=== PATIENT | female | born 1940 | race Caucasian/White ===

== ENCOUNTER → 2018-09-30 | Day surgery (SDC) | payer MEDICARE, OTHER ==
[2018-09-25 15:30] LABS: BASOPHILS % 0.4 % (0.0-1.0); EOSINOPHILS # (AUTO) 0.2 (0.0-0.4); EOSINOPHILS % 3.8 % (0.0-6.0); HEMATOCRIT 33.2 % (34.2-44.1); HEMOGLOBIN 11.2 g/dL (12.0-16.0); LYMPHOCYTES # (AUTO) 1.2 (1.0-3.2); LYMPHOCYTES % 23.5 % (18.0-39.1); MEAN CORPUSCULAR HGB CONC 33.7 g/dL (31-35); MONOCYTES # (AUTO) 0.4 (0.2-0.8); MONOCYTES % 8.1 % (4.4-11.3); NEUTROPHILS # (AUTO) 3.2 (2.1-6.9); PLATELET COUNT 135 x10e3/uL (140-360); RED BLOOD COUNT 3.61 x10e6/uL (3.6-5.1); RED CELL DISTRIBUTION WIDTH 12.1 % (11.7-14.4)
[2018-09-25 15:43] LABS: INR 0.95; PROTHROMBIN TIME 13.6 seconds (11.9-14.5)
[2018-09-25 15:44] LABS: PARTIAL THROMBOPLASTIN TIME 33.5 seconds (23.8-35.5)
[2018-09-25 15:50] LABS: ALBUMIN 3.6 g/dL (3.5-5.0); CALCIUM 9.9 mg/dL (8.4-10.2); CREATININE, SERUM 1.17 mg/dL (0.57-1.11)
[~2018-09-30] MED LIST: APRISO0.375 GM PO; CYCLOSPORINE25 MG PO; LEVOTHYROXINE112 MCG PO; ONCE DAILY1 EACH PO; PROPOFOL IV EMULSION 10 MG/ML 20 ML VIAL ONE; VITAMIN D400 UNIT PO
--- OUTSIDE RECORDS SUMMARY | 2018-09-30 05:48 | XMS REPORT | Clinical Summary ---
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 Active multivitamin per Take 1 tablet 0 tabletIndications: by mouth Cirrhosis (HCC), daily. Autoimmune hepatitis Vitamin for (HCC) women Active mesalamine (APRISO) 0.375 Take 375 mg 0 gram 24 hr capsule by mouth daily. Active cycloSPORINE modified Take 3 150 capsule 5 (NEORAL) 25 MG capsule tablets ( 75 8 mg total) In the morning and take 2 tablets ( 50 mg total) at night (12 hour separation).. 09/25/2018 Discontinued pantoprazole (PROTONIX) Take 40 mg by 0 40 MG tablet mouth daily. 01/30/2018 Discontinued cycloSPORINE modified Take 3 180 capsule 5 (NEORAL) 25 MG capsule capsules (75 6 mg total) by mouth 2 (two) times daily. 09/25/2018 Discontinued RISEDRONATE SODIUM Take by mouth 0 (RISEDRONATE ORAL) once a week. 07/04/2018 Discontinued azaTHIOprine (IMURAN) 50 Take 1 tablet 30 tablet 5 mg tablet (50 mg total) 8 by mouth daily. 09/25/2018 Discontinued mycophenolate (CELLCEPT) Take 1 60 capsule 6 08/17/201 250 mg capsule capsule (250 8 mg total) by mouth 2 (two) times daily. 08/13/2018 Discontinued sirolimus (RAPAMUNE) 1 MG Take 1 tablet 30 tablet 3 tablet (1 mg total) 8 by mouth daily. 09/25/2018 Discontinued sirolimus (RAPAMUNE) 0.5 Take 1 tablet 60 tablet 2 mg Tab tablet (0.5 mg 8 total) by mouth 2 (two) times daily. 08/20/2018 ondansetron (ZOFRAN-ODT) Take 1 tablet 60 tablet 2 4 MG disintegrating (4 mg total) 8 tablet by mouth every 8 (eight) hours as needed for Nausea for up to 7 days. Status Hospital, Clinic, or Ordered Dose Route Frequency Start End Date Other Facility Date Administered Medication Active gadobutrol Soln 6 mmol 6 mmol IV Cyclic- See Admin 04/11/20 Instructions 16 Active gadobutrol Soln 7 mmol 7 mmol IArt IMG once as needed 09/14/20 16 Active Problems Problem Noted Date Mouth sores 04/05/2016 Anemia 04/05/2016 Nausea 10/27/2015 Weight loss 10/27/2015 Cirrhosis 03/24/2014 Last Assessment & Plan: She has biopsy proven cirrhosis, supported by ultrasound showing a nodular liver. Her condition is well compensated with near-normal synthetic function and mild portal hypertension. The etiology is most likely autoimmune hepatitis. Portal hypertension 03/24/2014 Last Assessment & Plan: Although her spleen was reported as normal size on ultrasound, her platelet count is mildly decreased. Risk of esophageal varices 03/24/2014 Last Assessment & Plan: She has no clinical complications of portal hypertension, but she should be screened for esophageal varices. I will ask Dr. Guzman to do the procedure. Autoimmune hepatitis 03/24/2014 Last Assessment & Plan: She meets criteria for AIH including elevated BRANDYN, elevated liver tests, compatible biopsy, and a prior response to immunosuppression. We will start treatment with prednisone 30 mg and azathioprine 50 mg daily. She will taper to 20 mg prednisone over two weeks, and remain on 20 mg daily until her next visit. We will see her again in about 4 weeks with labs before her next visit. Immunity status testing 03/24/2014 Last Assessment & Plan: She demonstrates no prior exposure to hepatitis A or B, and has received a single shot vaccine based on Dr. Adams's advice. I assume this is Twinrix, but have asked her to bring her vaccination record to her next visit. Complete vaccination against HAV and HBV are recommended, but should be delayed until she is tapered off prednisone. Screening for cancer 03/24/2014 Last Assessment & Plan: Cirrhosis, regardless of etiology, is a risk factor for development of hepatocellular carcinoma with an annual incidence of 1.5-7%. We recommend surveillance for HCC with abdominal imaging and alphafetoprotein every 6 months. Her ultrasound in December 2013 showed no mass, and AFP was 1.6. We will repeat testing in Jun 2014. Encounters Care Team Description Date Type Specialty Li Lake RN 09/26/2018 Abstract Hepatology Juanjose Dover MD Other cirrhosis of liver (HCC); Autoimmune hepatitis (HCC) 09/25/2018 Orders Only Transplant Hepatology Juanjose Dover MD Hall, Sophia Marie, NP 09/25/2018 Office Visit Hepatology Gustavo Muñoz APPT CONFIRMATION 09/24/2018 Telephone Hepatology Dalton Cole NP Other cirrhosis of liver (HCC) (Primary Dx); Autoimmune hepatitis (HCC) 09/19/2018 Orders Only Hepatology Kathie Hull RN Autoimmune hepatitis (HCC) (Primary Dx) 09/19/2018 Orders Only Hepatology Gladys Mccall RN other 09/15/2018 Telephone HepatEmma Garay NP Follow-up 09/08/2018 Telephone Emma Reddy NP Follow-up 09/08/2018 Telephone HepatEmma Garay NP Autoimmune hepatitis (HCC) 08/28/2018 Orders Only Hepatology Emma Morillo NP Autoimmune hepatitis (HCC) 08/26/2018 Orders Only Hepatology Gustavo Muñoz 08/25/2018 Abstract Hepatology Emma Morillo NP Other cirrhosis of liver (HCC) (Primary Dx); Autoimmune hepatitis (HCC) 08/13/2018 Orders Only Hepatology Emma Morillo NP 08/13/2018 Orders Only Hepatology Emma Morillo NP Autoimmune hepatitis (HCC) (Primary Dx) 07/22/2018 Orders Only Hepatology Gustavo Muñoz abnormal labs 07/22/2018 Telephone Hepatology Dalton Cole NP 07/04/2018 Documentation Hepatology Dalton Cole NP Autoimmune hepatitis (HCC) 07/04/2018 Orders Only Hepatology Gladys Mccall RN other 07/04/2018 Telephone Hepatology Emma Morillo NP Autoimmune hepatitis (HCC) 07/02/2018 Orders Only Hepatology Emma Morillo NP Autoimmune hepatitis (HCC) (Primary Dx) 05/30/2018 Orders Only Hepatology Juanjose Dover MD Screening for cancer 04/16/2018 Hospital Radiology Encounter Juanjose Dover MD 04/15/2018 Outside Orders Radiology Juanjose Dover MD Other cirrhosis of liver (HCC) (Primary Dx); Autoimmune hepatitis (HCC); Screening for cancer; Portal hypertension (HCC); Secondary esophageal varices without bleeding (HCC); Osteoporosis, unspecified osteoporosis type, unspecified pathological fracture presence; Immunity status testing 04/03/2018 Office Visit Hepatology Abena Reyes PA-C Follow-up 03/17/2018 Telephone Hepatology David Lanier NP Dr. Hollinger reccomendation 02/05/2018 Telephone Hepatology Li Lake RN 01/30/2018 Orders Only Hepatology Angela Marte RN 01/29/2018 Documentation Hepatology Abena Reyes PA-C Autoimmune hepatitis (HCC) (Primary Dx) 01/13/2018 Orders Only Hepatology Rosalva Burks MD Other cirrhosis of liver (HCC); Autoimmune hepatitis (HCC); Screening for cancer 10/24/2017 Hospital Radiology Encounter David Lanier NP GI reports 10/04/2017 Telephone HepatLi Luo RN 10/04/2017 Abstract HepatLi Luo RN 10/04/2017 Abstract Hepatology Abena Reyes PA-C Hollinger, F. Blaine, MD Other cirrhosis of liver (HCC) (Primary Dx); Autoimmune hepatitis (HCC); Screening for cancer; Secondary esophageal varices without bleeding (HCC); Portal hypertension (HCC); Other iron deficiency anemia 10/03/2017 Office Visit Hepatology Juanjose Dover MD 09/30/2017 Orders Only Hepatology after 09/29/2017 Family History Medical History Relation Name Comments Heart failure Father Heart failure Mother Relation Name Status Comments Brother Alive Father Mother Sister Alive Sister Alive Social History Date Tobacco Use Types Packs/Day Years Used Former Smoker Smokeless Tobacco: Never Used Comments: smoked 31 years ago Alcohol Use Drinks/Week oz/Week Comments No 1-2 Cans of 0.6 - 1.2 Quit 2010 beer Sex Assigned at Date Recorded Not on file Industry Job Start Date Occupation Not on file Not on file Not on file Travel End Travel History Travel Start No recent travel history available. Last Filed Vital Signs Time Taken Vital Sign Reading 09/25/2018 10:32 AM [facility] Blood Pressure 146/80 09/25/2018 10:32 AM [facility] Pulse 62 09/25/2018 10:32 AM [facility] Temperature 36.7 C (98.1 F) 09/25/2018 10:32 AM [facility] Respiratory Rate 16 09/25/2018 10:32 AM [facility] ROOFER Oxygen Saturation 98% - Inhaled Oxygen - Concentration 09/25/2018 10:32 AM TIN ROOFER Weight 64.4 kg (142 lb) 09/25/2018 10:32 AM [facility] ROOFER Height 159 cm (5' 2.6") 09/25/2018 10:32 AM [facility] ROOFER Body Mass Index 25.48 Plan of Treatment Care Team Description Date Type Specialty Juanjose Dover MD [address] [address] [phone] Resource, [facility] 03/25/2019 Office Visit Hepatology Health Maintenance Due Date Last Done Comments INFLUENZA VACCINE 08/18/2018 Procedures Comments Procedure Name Priority Date/Time Associated Diagnosis CBC W/PLT COUNT & AUTO Routine 09/25/2018 Other cirrhosis of liver DIFFERENTIAL 10:26 AM [facility] (HCC) CYCLOSPORINE LEVEL Routine 09/25/2018 Autoimmune hepatitis 10:26 AM [facility] (HCC) ALPHA FETOPROTEIN (AFP), Routine 09/25/2018 Other cirrhosis of liver TUMOR MARKER 10:26 AM [facility] (HCC) CBC W/PLT COUNT & AUTO Routine 09/25/2018 Other cirrhosis of liver DIFFERENTIAL 10:26 AM [facility] (HCC) HEPATIC FUNCTION PANEL Routine 09/25/2018 Other cirrhosis of liver 10:26 AM [facility]FER (HCC) BASIC METABOLIC PANEL (7) Routine 09/25/2018 Other cirrhosis of liver 10:26 AM T[facility] ROOFER (HCC) CBC W/PLT COUNT & AUTO Routine 09/16/2018 Autoimmune hepatitis DIFFERENTIAL 9:29 AM CDT (HCC) HEPATIC FUNCTION PANEL Routine 09/16/2018 Autoimmune hepatitis 9:29 AM CDT (HCC) BASIC METABOLIC PANEL (7) Routine 09/16/2018 Autoimmune hepatitis 9:29 AM CDT (HCC) CYCLOSPORINE LEVEL Routine 09/16/2018 Autoimmune hepatitis 9:29 AM CDT (HCC) SIROLIMUS LEVEL Routine 09/16/2018 Autoimmune hepatitis 9:29 AM CDT (HCC) CBC W/PLT COUNT & AUTO Routine 08/28/2018 Autoimmune hepatitis DIFFERENTIAL 8:42 AM CDT (HCC) HEPATIC FUNCTION PANEL Routine 08/28/2018 Autoimmune hepatitis 8:42 AM CDT (HCC) BASIC METABOLIC PANEL (7) Routine 08/28/2018 Autoimmune hepatitis 8:42 AM CDT (HCC) CYCLOSPORINE LEVEL Routine 08/28/2018 Autoimmune hepatitis 8:42 AM CDT (HCC) SIROLIMUS LEVEL Routine 08/28/2018 Autoimmune hepatitis 8:42 AM CDT (HCC) IMMUNOGLOBULIN G (IGG) Routine 08/04/2018 Autoimmune hepatitis 8:39 AM CDT (HCC) CYCLOSPORINE LEVEL Routine 08/04/2018 Autoimmune hepatitis 8:39 AM CDT (HCC) PROTHROMBIN TIME/INR Routine 08/04/2018 Autoimmune hepatitis 8:39 AM CDT (HCC) CBC W/PLT COUNT & AUTO Routine 08/04/2018 Autoimmune hepatitis DIFFERENTIAL 8:39 AM CDT (HCC) HEPATIC FUNCTION PANEL Routine 08/04/2018 Autoimmune hepatitis 8:39 AM CDT (HCC) BASIC METABOLIC PANEL (7) Routine 08/04/2018 Autoimmune hepatitis 8:39 AM CDT (HCC) CYCLOSPORINE LEVEL Routine 07/18/2018 Autoimmune hepatitis 8:55 AM CDT (HCC) HEPATIC FUNCTION PANEL Routine 07/18/2018 Autoimmune hepatitis 8:55 AM CDT (HCC) BASIC METABOLIC PANEL (7) Routine 07/18/2018 Autoimmune hepatitis 8:55 AM CDT (HCC) CYCLOSPORINE LEVEL Routine 06/26/2018 Autoimmune hepatitis 9:36 AM CDT (HCC) HEPATIC FUNCTION PANEL Routine 06/26/2018 Autoimmune hepatitis 9:36 AM CDT (HCC) BASIC METABOLIC PANEL (7) Routine 06/26/2018 Autoimmune hepatitis 9:36 AM CDT (HCC) HEPATIC FUNCTION PANEL Routine 05/08/2018 Autoimmune hepatitis 8:47 AM CDT (HCC) BASIC METABOLIC PANEL (7) Routine 05/08/2018 Autoimmune hepatitis 8:47 AM CDT (HCC) CYCLOSPORINE LEVEL Routine 05/08/2018 Autoimmune hepatitis 8:47 AM CDT (HCC) US ABDOMINAL WITH DOPPLER Routine 04/16/2018 Screening for cancer 10:08 AM CDT CYCLOSPORINE LEVEL Routine 03/31/2018 Autoimmune hepatitis 9:27 AM CDT (HCC) PROTHROMBIN TIME/INR Routine 03/31/2018 Autoimmune hepatitis 9:27 AM CDT (HCC) CBC W/PLT COUNT & AUTO Routine 03/31/2018 Autoimmune hepatitis DIFFERENTIAL 9:27 AM CDT (HCC) HEPATIC FUNCTION PANEL Routine 03/31/2018 Autoimmune hepatitis 9:27 AM CDT (HCC) BASIC METABOLIC PANEL (7) Routine 03/31/2018 Autoimmune hepatitis 9:27 AM CDT (HCC) CYCLOSPORINE LEVEL Routine 01/07/2018 Autoimmune hepatitis 9:04 AM [facility]FER (HCC) Other cirrhosis of liver (HCC) Screening for cancer ALPHA FETOPROTEIN (AFP), Routine 01/07/2018 Other cirrhosis of liver TUMOR MARKER 9:00 AM [facility]FER (HCC) Autoimmune hepatitis (HCC) Screening for cancer PROTHROMBIN TIME/INR Routine 01/07/2018 Other cirrhosis of liver 9:00 AM [facility]OOFER (HCC) Autoimmune hepatitis (HCC) Screening for cancer CBC W/PLT COUNT & AUTO Routine 01/07/2018 Other cirrhosis of liver DIFFERENTIAL 9:00 AM T[facility]OOFER (HCC) Autoimmune hepatitis (HCC) Screening for cancer HEPATIC FUNCTION PANEL Routine 01/07/2018 Other cirrhosis of liver 9:00 AM TIN [facility]OOFER (HCC) Autoimmune hepatitis (HCC) Screening for cancer BASIC METABOLIC PANEL (7) Routine 01/07/2018 Other cirrhosis of liver 9:00 AM [facility]FER (HCC) Autoimmune hepatitis (HCC) Screening for cancer US ABDOMEN COMPLETE Routine 10/24/2017 Other cirrhosis of liver 2:08 PM [facility]IN [facility]OOFER (HCC) Autoimmune hepatitis (HCC) Screening for cancer CYCLOSPORINE LEVEL Routine 09/30/2017 9:11 AM [facility] ALPHA FETOPROTEIN (AFP), Routine 09/30/2017 TUMOR MARKER 9:11 AM [facility] IMMUNOGLOBULIN G (IGG) Routine 09/30/2017 9:11 AM [facility]IN [facility] CBC W/PLT COUNT & AUTO Routine 09/30/2017 DIFFERENTIAL 9:11 AM [facility]FER PROTHROMBIN TIME/INR Routine 09/30/2017 9:11 AM [facility] HEPATIC FUNCTION PANEL Routine 09/30/2017 9:11 AM TIN [facility]OOFER BASIC METABOLIC PANEL (7) Routine 09/30/2017 9:11 AM [facility]IN [facility]FER after 09/29/2017 Results * CBC with platelet count + automated diff (09/25/2018 10:26 AM TIN ROOFER) WBC 4.5 3.5 - 10.5 K/L [facility] RBC 3.78 (L) 3.93 - 5.22 M/L [facility] Hemoglobin 11.6 11.2 - 15.7 GM/DL [facility] Hematocrit 35.6 34.1 - 44.9 % [facility] MCV 94.2 79.4 - 94.8 fL [facility] MCH 30.7 25.6 - 32.2 pg [facility] MCHC 32.6 32.2 - 35.5 GM/DL [facility] RDW 12.2 11.7 - 14.4 % [facility] Platelets 142 (L) 150 - 450 K/CU MM [facility] MPV 10.9 9.4 - 12.3 fL [facility] nRBC 0 0 - 0 /100 WBC [facility] % Neutros 69 % [facility] % Lymphs 20 % [facility] % Monos 6 % [facility] % Eos 4 % [facility] % Baso 0 % [facility] # Neutros 3.12 1.56 - 6.13 K/L [facility] # Lymphs 0.89 (L) 1.18 - 3.74 K/L [facility] # Monos 0.29 0.24 - 0.36 K/L [facility] # Eos 0.18 0.04 - 0.36 K/L [facility] # Baso 0.02 0.01 - 0.08 K/L [facility] Immature 0 0 - 1 % [facility] Granulocytes-[facility] Specimen Blood Performing Organization Address City/State/[place] [address] [phone] [place] [address] * Cyclosporine level (09/25/2018 10:26 AM TIN ROOFER) Only the most recent of 10 results within the time period is included. Cyclosporine Lvl 61 <400 ng/mL [facility] Specimen Blood Performing Organization Address City/[facility]/[place] Phone Number [address] * Alpha fetoprotein (AFP), tumor marker (09/25/2018 10:26 AM TIN ROOFER) Only the most recent of 3 results within the time period is included. Alpha-Fetoprotein <2.0 <10.0 ng/mL [facility] Specimen Blood Performing Organization Address [facility]/[place] Phone Number [place] [phone] * Hepatic function panel (09/25/2018 10:26 AM TIN ROOFER) Only the most recent of 10 results within the time period is included. Protein, Total 7.7 6.0 - 8.3 gm/dL [facility] Albumin 4.0 3.5 - 5.0 g/dL [facility] Total Bilirubin 0.8 0.2 - 1.2 mg/dL [facility] Bilirubin, Direct 0.4 0.1 - 0.5 mg/dL [facility] Alkaline Phosphatase 77 40 - 150 U/L [facility] AST 30 5 - 34 U/L [facility] ALT 20 6 - 55 U/L [facility] Specimen Blood Performing Organization Address City/[facility]/Zipcode Phone Number [facility] [address] [place] [address] [facility] * Basic Metabolic Panel (09/25/2018 10:26 AM TIN ROOFER) Only the most recent of 10 results within the time period is included. Sodium 140 136 - 145 meq/L [facility] Potassium 4.2 3.5 - 5.1 meq/L [facility] Chloride 105 98 - 107 meq/L [facility] CO2 27 22 - 29 meq/L [facility] BUN 23 (H) 7 - 21 mg/dL [facility] Creatinine 1.41 (H) 0.57 - 1.25 mg/dL [facility] Glucose 79 70 - 105 mg/dL [facility] Calcium 9.8 8.4 - 10.2 mg/dL [facility] EGFR 36Comment: ESTIMATED GFR IS mL/min/1.[address] [facility] NOT ACCURATE CREATININE [facility] CLEARANCE IN PREDICTING GLOMERULAR FILTRATION RATE. ESTIMATED GFR IS NOT APPLICABLE FOR DIALYSIS PATIENTS. Specimen Blood Performing Organization Address City/State/Zipcode Phone Number [facility] [address] [place], [place] [phone] [facility] * Sirolimus level (09/16/2018 9:29 AM CDT) Only the most recent of 2 results within the time period is included. Rapamycin Trough <2.5 (L) 3.0 - 18.0 mcg/L [facility] Comment: This test was developed and its analytical performance characteristics have been determined by [facility]. It has not been cleared or approved by the US Food and Drug Administration. This assay has been validated pursuant to the CLIA regulations and is used for clinical purposes. Specimen Blood Narrative Performed At FASTING:YES [facility] FASTING: YES Resulting Agency Comment Performing Organization Information: Site ID: [id number] Name: [facility] Address: [address] [place] [address] Director: Anish Patel M.D., Ph.D Performing Organization Address [facility]/Zipcode Phone Number [facility] [address] [place] [address] [facility] * CBC with platelet count + automated diff (09/16/2018 9:29 AM CDT) Only the most recent of 6 results within the time period is included. WBC 2.7 (L) 3.8 - 10.8 Thousand/uL [facility] RBC 3.73 (L) 3.80 - 5.10 Million/uL [facility] Hemoglobin 11.4 (L) 11.7 - 15.5 g/dL [facility] Hematocrit 32.9 (L) 35.0 - 45.0 % [facility] MCV 88.2 80.0 - 100.0 fL [facility] MCH 30.6 27.0 - 33.0 pg [facility] MCHC 34.7 32.0 - 36.0 g/dL [facility] RDW 11.6 11.0 - 15.0 % [facility] Platelets 143 140 - 400 Thousand/uL [facility] MPV 10.9 7.5 - 12.5 fL [facility] # Neutros 1,531 1,500 - 7,800 cells/uL [facility] # Lymphs 802 (L) 850 - 3,900 cells/uL [facility] # Monos 267 200 - 950 cells/uL [facility] # Eos 89 15 - 500 cells/uL [facility] # Baso 11 0 - 200 cells/uL [facility] % Neutros 56.7 % [facility] % Lymphs 29.7 % [facility] % Monos 9.9 % [facility] % Eos 3.3 % [facility] % Baso 0.4 % [facility] Specimen Blood Narrative Performed At FASTING:YES [facility] FASTING: YES Resulting Agency Comment Performing Organization Information: Site ID: [id number]: [facility] Address: [address] [place] [address] Director: Gail Putnam Performing Organization Address City/[facility]/Zipcode Phone Number [facility] [address] [place] [address] [facility] * Pro-time/INR (08/04/2018 8:39 AM CDT) Only the most recent of 4 results within the time period is included. INR 1.0 [facility] Comment: Reference Range 0.9-1.1 Moderate-intensity Warfarin Therapy 2.0-3.0 Higher-intensity Warfarin Therapy 3.0-4.0 PT 10.8 9.0 - 11.5 sec [facility] Comment: For more information on this test, go to: http://education.[employer].[facility]/faq/NYZ942 Specimen Blood Resulting Agency Comment Performing Organization Information: Site ID: [id number] Name: [facility] Address: [address] [place] [phone] Director: Gail Putnam Performing Organization Address City/[facility]/Zipcode Phone Number [facility] [address] [place] [address] [facility] * Immunoglobulin G (IgG) (08/04/2018 8:39 AM CDT) Only the most recent of 2 results within the time period is included. Immunoglobulin G, Qn, 1,469 694 - 1,618 mg/dL [facility] Serum Specimen Blood Resulting Agency Comment Performing Organization Information: Site ID: [id number] [facility] Address: [address] [place] [phone] Director: Gail Putnam Performing Organization Address [facility]/[place] Phone Number [facility] [address] [place] [address] [facility] * US abdominal with doppler (04/16/2018 10:08 AM CDT) Narrative Performed At FINAL REPORT Healcerion Abdominal ultrasound dated 04/16/2018 Clinical information: cirrhosis, AIH, screen for liver cancer Comment:Real-time transabdominal ultrasound was performed. Liver is somewhat atrophic and measures 10.4 cm in length. The echogenicity of the liver is course with irregular margins consistent with cirrhosis.No focal lesion is noted in the liver.Spleen is normal in size without focal abnormality. Gallbladder is contracted. A few small gallstones are present. No biliary dilatation is seen. Common bile duct measures 4 mm in diameter.Main portal vein measures 10 mm in diameter. Pancreas is visualized and unremarkable. Right kidney measures 10.0 x 5.4 x 5.0 cm.Left kidney measures 10.2 x 5.2 x 3.8 cm.Echogenicity of both kidney is normal.No hydronephrosis or solid mass seen in either kidney.No cystis seen in the either kidney. No ascites present in the abdomen. Abdominal aorta is normal in caliber. The IVC is patent. Real-time Color and Spectral doppler ultrasound of the abdomen was performed. Main portal vein measures 1.0 cm in diameter. There is hepatopedal flow in the main portal vein with velocity 20.8 cm/sec.Right and left portal veins are patent. Proper hepatic artery, right hepatic artery, and left hepatic artery are patent with resistive indices 0.7, 0.7, and 0.7 respectively. IVC, Hepatic venous confluence, right HV, middle HV and left HV are patent. Impression: 1. Cirrhosis without suspicious hepatic mass. 2. Cholelithiasis without biliary dilatation. 3. Normal Doppler of the abdomen. Signed: Bakari Jean-Baptiste MD Report Verified Date/Time:04/16/2018 13:46:06 Reading Location: [address] Radiology Reading Room Procedure Note Interface, External Ris In - 04/16/2018 1:48 PM CDT FINAL REPORT Abdominal ultrasound dated 04/16/2018 Clinical information: cirrhosis, AIH, screen for liver cancer Comment: Real-time transabdominal ultrasound was performed. Liver is somewhat atrophic and measures 10.4 cm in length. The echogenicity of the liver is course with irregular margins consistent with cirrhosis. No focal lesion is noted in the liver. Spleen is normal in size without focal abnormality. Gallbladder is contracted. A few small gallstones are present. No biliary dilatation is seen. Common bile duct measures 4 mm in diameter. Main portal vein measures 10 mm in diameter. Pancreas is visualized and unremarkable. Right kidney measures 10.0 x 5.4 x 5.0 cm. Left kidney measures 10.2 x 5.2 x 3.8 cm. Echogenicity of both kidney is normal. No hydronephrosis or solid mass seen in either kidney. No cyst is seen in the either kidney. No ascites present in the abdomen. Abdominal aorta is normal in caliber. The IVC is patent. Real-time Color and Spectral doppler ultrasound of the abdomen was performed. Main portal vein measures 1.0 cm in diameter. There is hepatopedal flow in the main portal vein with velocity 20.8 cm/sec. Right and left portal veins are patent. Proper hepatic artery, right hepatic artery, and left hepatic artery are patent with resistive indices 0.7, 0.7, and 0.7 respectively. IVC, Hepatic venous confluence, right HV, middle HV and left HV are patent. Impression: 1. Cirrhosis without suspicious hepatic mass. 2. Cholelithiasis without biliary dilatation. 3. Normal Doppler of the abdomen. Signed: Bakari Jean-Baptiste MD Report Verified Date/Time: 04/16/2018 13:46:06 Reading Location: [address] Radiology Reading Room Performing Organization Address City/State/Zipcode Phone Number [facility]alcerion * US abdomen complete (10/24/2017 2:08 PM [facility]) Narrative Performed At FINAL REPORT [facility] HISTORY : Cirrhosis, screen for HCC COMPARISON : 03/23/2016 COMMENT : Complete ultrasound examination of the abdomen was performed. The liver is coarsened and heterogeneous in echo-texture without evidence of a focal mass. There is cholelithiasis. There is no significant gallbladder wall thickening, pericholecystic fluid or gallbladder sludge. The biliary tract is within normal limits with the common bile duct measuring 4 mm in maximum diameter.The visualized portions of the pancreas are within normal limits.The spleen is normal in size and echo-texture measuring 8.7 x 3.7 x 3.8 cm.The right kidney measures 7.9 x 3.8 x 4.1 cm and the left kidney 9.2 x 4.4 x 4.3 cm in maximum size.There is no evidence of cysts, masses, stones or hydronephrosis. The portal vein measures to a maximum of 1.2 cm in diameter. There is no ascites or pleural effusion. The visualized inferior vena cava, hepatic veins and abdominal aorta are within normal limits. The maximum diameter of the abdominal aorta is 1.9 cm. IMPRESSION : 1. Cirrhotic morphology of the liver. 2. Cholelithiasis. 3. Small sized kidneys. Signed: Jose Stoddard MD Report Verified Date/Time:10/24/2017 15:12:35 Reading Location: [address] Radiology Reading Room Procedure Note Interface, External Ris In - 10/24/2017 3:14 PM [facility] FINAL REPORT HISTORY : Cirrhosis, screen for HCC COMPARISON : 03/23/2016 COMMENT : Complete ultrasound examination of the abdomen was performed. The liver is coarsened and heterogeneous in echo-texture without evidence of a focal mass. There is cholelithiasis. There is no significant gallbladder wall thickening, pericholecystic fluid or gallbladder sludge. The biliary tract is within normal limits with the common bile duct measuring 4 mm in maximum diameter. The visualized portions of the pancreas are within normal limits. The spleen is normal in size and echo-texture measuring 8.7 x 3.7 x 3.8 cm. The right kidney measures 7.9 x 3.8 x 4.1 cm and the left kidney 9.2 x 4.4 x 4.3 cm in maximum size. There is no evidence of cysts, masses, stones or hydronephrosis. The portal vein measures to a maximum of 1.2 cm in diameter. There is no ascites or pleural effusion. The visualized inferior vena cava, hepatic veins and abdominal aorta are within normal limits. The maximum diameter of the abdominal aorta is 1.9 cm. IMPRESSION : 1. Cirrhotic morphology of the liver. 2. Cholelithiasis. 3. Small sized kidneys. Signed: Jose Stoddard MD Report Verified Date/Time: 10/24/2017 15:12:35 Reading Location: [address] Radiology Reading Room Performing Organization Address City/State/Zipcode Phone Number RIS after 09/29/2017 Insurance Payer Benefit Subscriber ID Type Phone Address Plan / Group MEDICARE MEDICARE A xxxxxxxxxxx Medicare B MCR SUPPLEMENT/INDIVIDUAL [employer]ETNA xxxxxxxxxx SENIOR SUPPLEMENT [place]
--- OUTSIDE RECORDS SUMMARY | 2018-09-30 05:48 | XMS REPORT ---
Author Author [facility] Address Unknown Phone Unavailable Care Team Providers Care Stud Setter Name Role Phone SHANTELLE OLIVEIRA Unavailable Unavailable LUCIA DALLAS Unavailable Unavailable Problems This patient has no known problems. Allergies, Adverse Reactions, Alerts This patient has no known allergies or adverse reactions. Medications This patient has no known medications. Results Test Description Test Time Test Comments Text Results Atomic Results Result Comments CYCLOSPORINE LEVEL 2018-09-25 16:26:00 CYCLOSPORINE BLOOD (BEAKER) (test xhuc=912) 61 ng/mL <400 HEPATIC FUNCTION [id number] 14:12:00* Test Item Value Reference Range Comments TOTAL PROTEIN (BEAKER) (test mnuc=379) 7.7 gm/dL 6.0-8.3 ALBUMIN (BEAKER) (test eczx=3979) 4.0 g/dL 3.5-5.0 BILIRUBIN TOTAL (BEAKER) (test wxzh=340) 0.8 mg/dL 0.2-1.2 BILIRUBIN DIRECT (BEAKER) (test gdcr=346) 0.4 mg/dL 0.1-0.5 ALKALINE PHOSPHATASE (BEAKER) (test bojj=087) 77 U/L 40-150 AST (SGOT) (BEAKER) (test mnfw=982) 30 U/L 5-34 ALT (SGPT) (BEAKER) (test qbgq=693) 20 U/L 6-55 BASIC METABOLIC [id number] 14:12:00* Test Item Value Reference Range Comments SODIUM (BEAKER) (test eqbq=114) 140 meq/L 136-145 POTASSIUM (BEAKER) (test miwj=899) 4.2 meq/L 3.5-5.1 CHLORIDE (BEAKER) (test utyo=970) 105 meq/L 98-107 CO2 (BEAKER) (test uzdz=094) 27 meq/L 22-29 BLOOD UREA NITROGEN (BEAKER) (test rgdh=802) 23 mg/dL 7-21 CREATININE (BEAKER) (test vjiv=996) 1.41 mg/dL 0.57-1.25 GLUCOSE RANDOM (BEAKER) (test tpke=324) 79 mg/dL 70-105 CALCIUM (BEAKER) (test gmte=250) 9.8 mg/dL 8.4-10.2 EGFR (BEAKER) (test cjjv=9393) 36 mL/min/1.73 sq m ESTIMATED GFR IS NOT ACCURATE CREATININE CLEARANCE IN PREDICTING GLOMERULAR FILTRATION RATE. ESTIMATED GFR IS NOT APPLICABLE FOR DIALYSIS PATIENTS. ALPHA FETOPROTEIN (AFP), TUMOR [id number] 14:10:00* Test Item Value Reference Range Comments ALPHA-FETOPROTEIN (BEAKER) (test nlng=3646) < ng/mL <10.0 CBC W/PLT COUNT & AUTO [id number] 12:44:00* Test Item Value Reference Range Comments WHITE BLOOD CELL COUNT (BEAKER) (test vbpx=507) 4.5 K/ L 3.5-10.5 RED BLOOD CELL COUNT (BEAKER) (test rfby=744) 3.78 M/ L 3.93-5.22 HEMOGLOBIN (BEAKER) (test lkix=577) 11.6 GM/DL 11.2-15.7 HEMATOCRIT (BEAKER) (test utzj=432) 35.6 % 34.1-44.9 MEAN CORPUSCULAR VOLUME (BEAKER) (test wxgr=187) 94.2 fL 79.4-94.8 MEAN CORPUSCULAR HEMOGLOBIN (BEAKER) (test yxsq=649) 30.7 pg 25.6-32.2 MEAN CORPUSCULAR HEMOGLOBIN CONC (BEAKER) (test imft=245) 32.6 GM/DL 32.2-35.5 RED CELL DISTRIBUTION WIDTH (BEAKER) (test aclk=245) 12.2 % 11.7-14.4 PLATELET COUNT (BEAKER) (test slwv=672) 142 K/CU MM 150-450 MEAN PLATELET VOLUME (BEAKER) (test lorx=429) 10.9 fL 9.4-12.3 NUCLEATED RED BLOOD CELLS (BEAKER) (test mmdo=584) 0 /100 WBC 0-0 NEUTROPHILS RELATIVE PERCENT (BEAKER) (test hrji=179) 69 % LYMPHOCYTES RELATIVE PERCENT (BEAKER) (test lhjq=637) 20 % MONOCYTES RELATIVE PERCENT (BEAKER) (test soyh=924) 6 % EOSINOPHILS RELATIVE PERCENT (BEAKER) (test vjtq=958) 4 % BASOPHILS RELATIVE PERCENT (BEAKER) (test pwgw=358) 0 % NEUTROPHILS ABSOLUTE COUNT (BEAKER) (test bgvn=481) 3.12 K/ L 1.56-6.13 LYMPHOCYTES ABSOLUTE COUNT (BEAKER) (test fheq=723) 0.89 K/ L 1.18-3.74 MONOCYTES ABSOLUTE COUNT (BEAKER) (test uzdt=665) 0.29 K/ L 0.24-0.36 EOSINOPHILS ABSOLUTE COUNT (BEAKER) (test ohgk=043) 0.18 K/ L 0.04-0.36 BASOPHILS ABSOLUTE COUNT (BEAKER) (test hzvr=594) 0.02 K/ L 0.01-0.08 IMMATURE GRANULOCYTES-RELATIVE PERCENT (BEAKER) (test yjha=0559) 0 % 0-1 U/S, ABDOMINAL, WITH [id number] 13:46:00Reason for Exam:->cirrhosis, AIH, screen for liver cancerFINAL REPORT Abdominal ultrasound dated 04/16/2018 Clinical information: [...] patent. Impression: 1. Cirrhosis without suspicious hepatic mass.2. Cholelithiasis without biliary dilatation.3. Normal Doppler of the abdomen. Signed: Bakari Jean-Baptiste Verified Date/Time: 04/16/2018 13:46:06 Reading Location: [address] Radiology Reading Room U/S, ABDOMINAL, COMPLETE 2017-10-24 15:12:00Reason for Exam:->cirrhosis please screen for HCCFINAL REPORT HISTORY : Cirrhosis, screen for HCC [...] bile duct measuring 4 mm in maximum di ameter. The visualized portions of the pancreas are within normal limits. The spleen is normal in size and echo-texture measuring 8.7 x 3.7 x 3.8 cm. The rig ht kidney measures 7.9 x 3.8 x 4.1 cm and the left kidney 9.2 x 4.4 x 4.3 cm in maximum size. There is no evidence of cysts, masses, stones or hydronephrosis. The portal vein measures to a maximum of 1.2 cm in diameter. There is no ascites or pleural effusion. The visualized inferior vena cava, hepatic veins and abdom inal aorta are within normal limits. The maximum diameter of the abdominal aorta is 1.9 cm. IMPRESSION : 1. Cirrhotic morphology of the liver. 2. Cholelithiasi s. 3. Small sized kidneys. Signed: Jose Stoddardort Verified Date/Time: 12/25/2016 15:12:35 Reading Location: [address] Radiology Reading Room -[id number] 10:37:00* Test Item Value Reference Range Comments POC-CREATININE (ALINA) (test ejid=8898) 1.0 mg/dL 0.6-1.3 [address] [address] POC-EGFR (ALINA) (test enga=9132) 54 mL/min/1.73M2
[2018-09-30 08:15] VITALS: BP 132/68
--- NOTE | 2018-09-30 08:19 | Operative Report ---
DATE OF PROCEDURE: September 30, 2018 PROCEDURE: Esophagogastroduodenoscopy. PREOPERATIVE DIAGNOSIS: The patient with a history of autoimmune hepatitis with cirrhosis and esophageal varices, here for surveillance to consider banding if the varices are getting bigger. PROCEDURE: After informed written consent, premedications with monitored anesthesia care, standard adult video Olympus gastroscope was introduced into the mouth, esophagus, stomach and into the 2nd portion of the duodenum. The 1st and 2nd portion of the duodenum appeared to be normal. The ampulla was normal. The pylorus and pyloric channel was unremarkable. The antrum and body was normal. The fundus showed evidence of portal gastropathy. There was no evidence of gastric varices. Retroflexion did reveal a very small sliding hiatal hernia. Visualization of the lower esophagus showed 2 cords of esophageal varices, grade 1-2+. There was no stigmata of bleeding. This appearance was very similar to what we saw last year. Therefore, no banding has been done. IMPRESSION 1. One to 2+ esophageal varices, 2 columns. 2. Hiatal hernia. 3. Portal gastropathy. RECOMMENDATIONS: Avoid aspirin and NSAIDs. Continue current medications. Repeat EGD in 1 year for surveillance purposes. Further recommendations will be based on the patient's clinical course. Job#: [id number] KENTRELL
== END | disposition home or self-care (01) ==
LOC: OR 05:46
PROVIDERS: ATTEND Internal Medicine Gastroenterology
DX: K74.60 Unspecified cirrhosis of liver (principal); I85.10 Secondary esophageal varices without bleeding; K75.4 Autoimmune hepatitis; K31.9 Disease of stomach and duodenum, unspecified; K44.9 Diaphragmatic hernia without obstruction or gangrene; Z01.810 Encounter for preprocedural cardiovascular examination; Z01.812 Encounter for preprocedural laboratory examination; K51.00 Ulcerative (chronic) pancolitis without complications; E66.3 Overweight; Z68.25 Body mass index [BMI] 25.0-25.9, adult; Z71.3 Dietary counseling and surveillance; M81.0 Age-related osteoporosis without current pathological fracture; Z87.891 Personal history of nicotine dependence; Z88.0 Allergy status to penicillin
CPT/HCPCS: 36415; 43235; 80053; 85025; 85610; 85730; 93005; J2704

== ENCOUNTER → 2020-07-26 | Day surgery (SDC) | payer MEDICARE, OTHER ==
[2020-07-21 10:25] LABS: BASOPHILS % 0.2 % (0.0-1.0); EOSINOPHILS # (AUTO) 0.2 (0.0-0.4); EOSINOPHILS % 3.1 % (0.0-6.0); HEMATOCRIT 33.6 % (34.2-44.1); HEMOGLOBIN 11.3 g/dL (12.0-16.0); MEAN CORPUSCULAR HEMOGLOBIN 31.8 pg (28-32); MEAN CORPUSCULAR HGB CONC 33.6 g/dL (31-35); MEAN CORPUSCULAR VOLUME 94.6 fL (81-99); MONOCYTES # (AUTO) 0.5 (0.2-0.8); MONOCYTES % 8.9 % (4.4-11.3); NEUTROPHILS # (AUTO) 3.5 (2.1-6.9); NEUTROPHILS % 68.6 % (38.7-80.0); PLATELET COUNT 88 x10e3/uL (140-360); RED BLOOD COUNT 3.55 x10e6/uL (3.6-5.1)
[2020-07-21 10:42] LABS: INR 1.05; PARTIAL THROMBOPLASTIN TIME 31.3 seconds (23.8-35.5); PROTHROMBIN TIME 14.3 seconds (11.9-14.5)
[2020-07-21 10:49] LABS: ALBUMIN 3.4 g/dL (3.5-5.0); ALBUMIN/GLOBULIN RATIO 1.1 (0.8-2.0); ANION GAP 14.2 mmol/L (8-16); CALCIUM 8.4 mg/dL (8.4-10.2); CREATININE, SERUM 1.47 mg/dL (0.57-1.11); POTASSIUM 4.2 mmol/L (3.5-5.1)
[~2020-07-26] MED LIST changes: +PREDNISONE5 G1
[2020-07-26 10:05] VITALS: BP 122/74
--- NOTE | 2020-07-26 12:19 | Operative Report ---
DATE OF PROCEDURE: SURGEON: Gary Guzman MD NAME OF THE PROCEDURE: EGD. PREPROCEDURE DIAGNOSIS: The patient with history of cirrhosis, here for varices screening. DESCRIPTION OF PROCEDURE: After informed written consent, premedications with monitored anesthesia care, a standard adult video Olympus gastroscope was introduced into the mouth, esophagus, stomach into the 2nd portion of the duodenum. First and second portions of duodenum, antrum, body, and fundus appeared unremarkable. There was a small sliding hiatal hernia. 1 to 2+ esophageal varices were noted. There was no stigmata of recent bleeding. IMPRESSION: 1. Esophageal varices, 1 to 2+. Does not completely deflate with insufflation. 2. Hiatal hernia. RECOMMENDATION: EGD in 1 year. Colonoscopy in 6 months. Consider beta niki. We will coordinate medical therapy with the [place] studies director and follows at the medical center. Further recommendations based on patient's clinical course. Gary Guzman MD SR/MODL /[id number]
== END | disposition home or self-care (01) ==
LOC: OR 07:15
PROVIDERS: ATTEND Internal Medicine Gastroenterology
DX: K51.90 Ulcerative colitis, unspecified, without complications (principal); K75.4 Autoimmune hepatitis; K74.60 Unspecified cirrhosis of liver; I85.00 Esophageal varices without bleeding; Z88.0 Allergy status to penicillin; E03.9 Hypothyroidism, unspecified; K44.9 Diaphragmatic hernia without obstruction or gangrene; Z01.810 Encounter for preprocedural cardiovascular examination; Z01.812 Encounter for preprocedural laboratory examination; Z11.59 Encounter for screening for other viral diseases
CPT/HCPCS: 36415; 43235; 80053; 85025; 85610; 85730; 93005; J2704; U0002; 43239